=== PATIENT | female | born 1975 | race Caucasian/White ===

== ENCOUNTER 2016-05-11 02:05 | Emergency (ER) | payer SELFPAY ==
--- NOTE | 2016-05-11 06:25 | ER ---
ADMIT: 05/11/2016 RM/LOC: ER [facility], [place] MR#: [id number] [address] [id number] LEONA HAWTHORNE [address] [place] [address] Emergency Room Report SEX: F AGE: 40 : 1975 DATE: 05/11/2016 HISTORY OF PRESENT ILLNESS: The patient is a 40-year-old female with a past medical history of depression and anxiety, who came to the ER with chief complaint of 3 days of left anterior lower chest/upper abdomen point, tender pain, which increases with palpation over specific point and radiates to the left flank. Pain is sharp and is moderate in severity. The patient denies any nausea or vomiting or diarrhea, and last bowel movement was normal. The patient denies any urinary symptoms. PHYSICAL EXAMINATION: HEAD AND NECK: Noncontributory. CHEST: Bilateral equal breath sounds. HEART: Normal S1, S2. ABDOMEN: In the left upper abdomen, left lower ribs, there is a tender point, which I pressed 1 x 1 cm per patient produces very same pain. The patient does not have any other tenderness or rebound in other parts of the abdomen. No CVA tenderness. The rest of the physical exam is noncontributory. LABORATORY DATA: Urine was negative for and rbc and white BC. The patient received GI cocktail, and also Toradol, later patient received Percocet and pain resolved moderately. The patient was reexamined, abdomen was benign and soft, and the patient states she feels better, she wants to go home. PLAN: The patient was advised to follow up with the primary care doctor as needed. Vaughn Waters MD/ jocelyne JOB #: [id number] CC: Vaughn Waters MD, Attending Physician Teodoro Kenney MD, Family Physician
== END 2016-05-11 05:10 | disposition home or self-care (01) ==
LOC: ER 02:05
DX: R10.10 Upper abdominal pain, unspecified (principal); F32.9 Major depressive disorder, single episode, unspecified; Z90.49 Acquired absence of other specified parts of digestive tract; Z88.0 Allergy status to penicillin; Z88.2 Allergy status to sulfonamides